=== PATIENT | female | born 1985 | race Caucasian/White ===

== ENCOUNTER 2019-09-10 22:18 | Emergency (ER) | payer SELFPAY ==
[2019-09-11] MEDS ORDERED: Clindamycin CAP* 150 MG PO ONE (01:02)
--- NOTE | 2019-09-11 01:06 | ED ---
Skin Complaint - HPI Summary HPI Summary: 34 year old female presents with rash to left thigh for past two days. States that she was at [employer] and was working out when she felt something bite her left thigh. States she noticed some bruising to the area and since then redness developed on the bruising that has been spreading. She placed a line this morning and the redness spreading beyond that. She denies any history of MRSA. Never had this before. Unsure what bit her. She denies any itchiness. She states it is painful. No chest pain or shortness breath. No fevers. Has no medical conditions. - History of Current Complaint Chief Complaint: EDRashSkinAbscess Time Seen by Provider: 09/11/19 00:54 Stated Complaint: BITE IVÁN LEG RED SWELLING PAINFUL PER PT Pain Intensity: 4 - Allergy/Home Medications Allergies/Adverse Reactions: Allergies Allergy/AdvReac Type Severity Reaction Status Date / Time Penicillins Allergy Rash Verified 09/10/19 22:21 Home Medications: Home Medications ARIPiprazole TAB* [Abilify TAB*] 5 mg PO DAILY 09/11/19 [History Confirmed ] Atomoxetine(NF) [Strattera(NF)] 80 mg PO DAILY 09/11/19 [History Confirmed 09/11] Meloxicam [Mobic] 1 tab PO BID 09/11/19 [History Confirmed 09/11/19] Naltrexone Microspheres [Vivitrol] 1 dose IM SEE INSTRUCTIONS 09/11/19 [History Confirmed 09/11/19] PMH/Surg Hx/FS Hx/Imm Hx Endocrine/Hematology History: Denies: Hx Anticoagulant Therapy Respiratory History: Denies: Hx Asthma Infectious Disease History: No Infectious Disease History: Denies: Traveled Outside the [place] in Last 30 Days - Family History Known Family History: Positive: Non-Contributory - Social History Alcohol Use: unk Substance Use Type: Reports: None Smoking Status (MU): Unknown if Ever Smoked Review of Systems Negative: Fever Negative: Chest Pain Negative: Shortness Of Breath Positive: Rash All Other Systems Reviewed And Are Negative: Yes Physical Exam Triage Information Reviewed: Yes Vital Signs On Initial Exam: Initial Vitals Temp Pulse Resp BP Pulse Ox 98.3 F 81 18 131/92 100 09/10/19 22:20 09/10/19 22:20 09/10/19 22:20 09/10/19 22:20 09/10/19 22:20 Vital Signs Reviewed: Yes Appearance: Positive: Well-Appearing Skin: Positive: Warm, Dry, Other - ecchymosis to left thigh with surrounding erythema that is slightly warm to touch Head/Face: Positive: Normal Head/Face Inspection Eyes: Positive: Normal, Conjunctiva Clear ENT: Positive: Pharynx normal Respiratory/Lung Sounds: Positive: Clear to Auscultation, Breath Sounds Present Cardiovascular: Positive: Normal, RRR Musculoskeletal: Positive: Strength/ROM Intact - left leg, Other - good pulses Neurological: Positive: Normal Psychiatric: Positive: Normal Procedures - Sedation Patient Received Moderate/Deep Sedation with Procedure: No Diagnostics - Vital Signs Vital Signs Temp Pulse Resp BP Pulse Ox 09/11/19 00:16 97.4 F 74 18 111/77 100 09/10/19 22:20 98.3 F 81 18 131/92 100 - Laboratory Lab Statement: Any lab studies that have been ordered have been reviewed, and results considered in the medical decision making process. Course/Dx - Course Course Of Treatment: 34 year old female presents with rash to left thigh for past two days. States that she was at [employer] and was working out when she felt something bite her left thigh. States she noticed some bruising to the area and since then redness developed on the bruising that has been spreading. She placed a line this morning and the redness spreading beyond that. She denies any history of MRSA. Never had this before. Unsure what bit her. She denies any itchiness. She states it is painful. No chest pain or shortness breath. No fevers. Has no medical conditions. On exam has ecchymosis to left thigh with some erythema around such. It is slightly warm. As patient is resident of [place] and does not have good will place on clindamycin for potential cellulitis. told follow up with urgent care or primary. Warned if no improvement to return. Patient understands agrees with the plan. - Differential Diagnoses - Skin Complaint Differential Diagnoses: Abscess, Cellulitis, Contact Dermatitis - Diagnoses Provider Diagnoses: Rash Discharge ED - Sign-Out/Discharge Documenting (check all that apply): Patient Departure - Discharge Plan Condition: Good Disposition: HOME Prescriptions: Clindamycin Cap(NF) [Clindamycin Cap 300 mg Cap(NF)] 300 mg PO TID #20 cap Patient Education Materials: Cellulitis (ED) Referrals: Bryson Ahumada MD [Primary Care Provider] - Additional Instructions: will treat as potential early cellulitis with clindamycin three times a day for [address] ice on the area Take Tylenol as needed for pain every 6 hours follow up with primary within 5 days Return to ED if rash spreads after two days on antibiotics, or develop any new or worsening symptoms - Billing Disposition and Condition Condition: GOOD Disposition: Home
[2019-09-11 01:30] VITALS: BP 111/71
== END 2019-09-11 01:30 | disposition home or self-care (01) ==
LOC: ED 22:18 → MERGE 22:18 → ED 09-11 01:29
DX: R21 Rash and other nonspecific skin eruption (principal); Z88.0 Allergy status to penicillin
CPT/HCPCS: A9270-GY